=== PATIENT | female | born 1960 | race Caucasian/White ===

== ENCOUNTER 2018-06-20 09:48 | Day surgery (SDC) | payer OTHER ==
[~2018-06-20] VITALS: Ht 157.5 cm; Wt 63.2 kg
[2018-06-20 11:06] VITALS: Ht 157.5 cm; Wt 63.2 kg
[2018-06-20] MEDS ORDERED: ATOR40TA68 PO (11:11)
[2018-06-20] MEDS ORDERED: MTF1000T PO (11:11)
[2018-06-20 11:27] VITALS: BP 120/58; PULSE 59; RESP 18
[2018-06-20] MEDS ORDERED: MIDAZOLAM 1 MG/ML 2 ML INJ ONE ×2 (12:09)
[2018-06-20] MEDS ORDERED: FENTAnyl 50 MCG/ML VIAL ONE (12:09)
== END 2018-06-20 15:19 | disposition home or self-care (01) ==
LOC: GIL 09:48
PROVIDERS: ATTEND Internal Medicine Gastroenterology
DX: Z12.11 Encounter for screening for malignant neoplasm of colon (principal); K57.30 Diverticulosis of large intestine without perforation or abscess without bleeding; E11.9 Type 2 diabetes mellitus without complications
CPT/HCPCS: 45378; 82962; J2250; J3010; Z7610